=== PATIENT | male | born 1965 | race Caucasian/White ===

== ENCOUNTER 2018-10-12 08:35 | Emergency (ER) | payer OTHER, SELFPAY ==
[2018-10-12 08:53] VITALS: BP 143/90; PULSE 67; RESP 18; TEMP 36.3; O2SAT 100; BMI 26.5
--- NOTE | 2018-10-12 09:26 | ED_ITS ---
HPI - Wound/Laceration General Chief Complaint: Wound/Laceration Stated Complaint: RT MIDDLE FINGER CUT Time Seen by Provider: 10/12/18 09:07 Source: patient Mode of arrival: ambulatory Limitations: no limitations History of Present Illness HPI narrative: Patient is a 53-year-old male who presents with right index finger laceration. He was picking up fire hydrant off there was a sharp piece on the bottom he cut his distal middle finger. He is worried because the quite dirty on and he would like a repeat tetanus. He has no numbness or tingling. 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 He is right-hand dominant. Onset (ago): hour(s) Related Data Home Medications Medication Instructions Recorded Confirmed lisinopril [Prinivil] See Label Instructions .ROUTE 10/12/18 10/12/18 .COMPLEX Allergies Allergy/AdvReac Type Severity Reaction Status Date / Time aspirin Allergy Intermediate Hives Verified 10/12/18 08:59 Review of Systems Review of Systems GENERAL: Denies chills,fever HEENT: Denies throat pain RESPIRATORY: Denies dyspnea, cough, wheezing CARDIOVASCULAR: Denies chest pain, palpitations GASTROINTESTINAL: Denies nausea, vomiting MUSCULOSKELETAL: Denies extremity pain, injury SKIN: + laceration, see HPI NEUROLOGIC: Denies weakness, dizziness, headache, numbness 8 point review of systems is negative except for those stated above and HPI PFSH Medical History Healthy adult (Acute) Not up to date with tetanus toxoid immunization (Acute) Social History Smoking Status: Former smoker Exam Initial Vital Signs Initial Vital Signs: Vital Signs Temperature 97.3 F L 10/12/18 08:53 Pulse Rate 67 10/12/18 08:53 Respiratory Rate 18 10/12/18 08:53 Blood Pressure 143/90 H 10/12/18 08:53 Pulse Oximetry 100 10/12/18 08:53 GENERAL: Well-appearing, well-nourished and in no acute distress. CARDIOVASCULAR: peripheral pulses in tact, cap refill <2 sec RESPIRATORY: No respiratory distress, speaks in full sentences without difficulty EXTREMITIES: Normal range of motion, no clubbing or edema. Neurovascularly intact NEUROLOGICAL: Cranial nerves II through XII grossly intact. Normal gait and speech. SKIN: 2.5 cm laceration right index finger palmar side good flow skin approximation Procedures Laceration Repair Laceration 1: Site: hand (Right middle finger) Side (If applicable): right Size (cm): 2.5 Description: linear Depth: simple, single layer Pre-repair: wound explored Skin layer closed with: other (Steri-Strips) Course Orders Ordered: Discontinued Medications Diphtheria/Tetanus/Acell Pertussis (Adacel) 0.5 ml IM .ONCE ONE Stop: 10/12/18 09:23 Last Admin: 10/12/18 09:41 Dose: 0.5 ml Vital Signs - 8 hr 10/12/18 09:59 Pulse Rate 64 Respiratory Rate 17 Blood Pressure [Right Arm] 132/82 Pulse Oximetry 97 Discharge Plan Departure Patient Disposition: Home Clinical Impression: Laceration of right middle finger Discharge Date/Time: 10/12/18 10:01 Interventions: ED Discharge Assessment Last Done: 10/12/18 10:01 Instructions: DI for Laceration Repair Steri-Strips Activity Restrictions/Additional Instructions: *You have been diagnosed with laceration right middle finger *What to do: Keep clean and dry with soap and water keep covered while working. Steri-Strips should fall off on their own *Continue to take medications as directed *Follow up with your primary care provider in 2-3 days *Return to ER if you should have redness, pus, or any new, worsening or concerning symptoms Prescriptions: No Action lisinopril [Prinivil] 5 mg tablet See Label Instructions .ROUTE .COMPLEX RF: 0
[2018-10-12] MEDS: TET,DIPH,PERTUSS(ACELL),VAC/PF 0.5 ML SYRINGE IM (09:41)
[2018-10-12 09:59] VITALS: BP 132/82; PULSE 64; RESP 17; O2SAT 97
== END 2018-10-12 10:01 | disposition home or self-care (01) ==
PROVIDERS: Emergency Provider Emergency Medicine
DX: S61.212A Laceration without foreign body of right middle finger without damage to nail, initial encounter (principal); W26.8XXA Contact with other sharp object(s), not elsewhere classified, initial encounter; Y99.0 Civilian activity done for income or pay
CPT/HCPCS: 90471; 99283; 90715

== ENCOUNTER → 2020-01-25 13:56 | Outpatient (CLI) | payer OTHER, SELFPAY ==
[2020-01-25 16:16] LABS: Influenza A - CEPHEID Flu A NEGATIVE (NEGATIVE); Influenza B - CEPHEID Flu B NEGATIVE (NEGATIVE)
[2020-01-27 19:38] LABS: COVID19 Sendout Not Detected (Not Detected)
== END ==
PROVIDERS: Visit Provider Family Medicine
DX: R05 Cough (principal); R06.02 Shortness of breath
CPT/HCPCS: 87502; 87635

== ENCOUNTER → 2021-01-16 12:05 | Outpatient (CLI) | payer OTHER, SELFPAY ==
[2021-01-16] MEDS: COVID-19 VACC #1, MRNA(MOD) 100 MCG/0.5 ML VIAL IM (12:16)
== END ==
PROVIDERS: Referring Provider Internal Medicine; Visit Provider Internal Medicine
DX: Z23 Encounter for immunization (principal)
CPT/HCPCS: 0011A; 91301

== ENCOUNTER → 2021-02-13 12:12 | Outpatient (CLI) | payer OTHER, SELFPAY ==
[2021-02-13] MEDS: COVID-19 VACC #2, MRNA(MOD) 100 MCG/0.5 ML VIAL IM (12:18)
== END ==
PROVIDERS: Visit Provider Internal Medicine
DX: Z23 Encounter for immunization (principal)
CPT/HCPCS: 0012A; 91301

== ENCOUNTER → 2025-04-06 13:07 | Outpatient (CLI) | payer OTHER, SELFPAY ==
--- NOTE | 2025-04-06 13:08 | DI.CT.S_ITS ---
PROCEDURE: CT LUNG LOW DOSE SCREENING INDICATIONS: LUNG CANCER SCREENING TECHNIQUE: Noncontrast 2.0-2.5 mm thick sections acquired from the pulmonary apices to the posterior costophrenic angles. 7 mm thick axial MIP, and 5 mm coronal and sagittal reformats were then acquired. For radiation dose reduction, the following was used: automated exposure control, adjustment of mA and/or kV according to patient size. COMPARISON: None. FINDINGS: Image quality: Diagnostic. Lower Neck: No enlarged lymph nodes. Thyroid: No thyroid nodules which require sonographic follow up, per consensus guidelines. Axillae: No enlarged lymph nodes. Chest Wall: Unremarkable. Bones: No suspicious osseous lesion. Lungs and Pleura: No pneumothorax or pleural effusions. No consolidation or suspicious nodules. Heart: Heart size is normal. Moderate to severe coronary artery calcifications. No pericardial effusion. Thoracic Vessels: The aorta and pulmonary arteries demonstrate normal size. Retroaortic right subclavian artery, variant. Mediastinum and [place]: No enlarged lymph nodes. Esophagus: No wall thickening. No hiatal hernia. Upper Abdomen: Post cholecystectomy. IMPRESSION: No suspicious pulmonary nodules. LUNG-RADS 1; continued annual screening, if eligible. Clinically Significant Non-pulmonary Findings: Moderate to severe coronary artery calcifications. Dictated by: Jeff Monroe M.D. on 04/06/2025 at 16:32 Approved by: Jeff Monroe M.D. on 04/06/2025 at 16:51
== END ==
LOC: CT 13:07
PROVIDERS: PCP Physician Assistant; Referring Provider Physician Assistant; Visit Provider Physician Assistant
DX: Z12.2 Encounter for screening for malignant neoplasm of respiratory organs (principal); F17.210 Nicotine dependence, cigarettes, uncomplicated; I25.10 Atherosclerotic heart disease of native coronary artery without angina pectoris
CPT/HCPCS: 71271